=== PATIENT | female | born 1985 | race Caucasian/White ===

== ENCOUNTER 2017-03-07 12:34 | Emergency (ER) | payer MEDICAID ==
[~2017-03-07] VITALS: Ht 170.2 cm; Wt 81.7 kg
[2017-03-07 12:38] VITALS: BP 117/62; PULSE 86; RESP 16; TEMP 98.1; O2SAT 99
--- NOTE | 2017-03-07 13:10 | PD ---
HPI Chief Complaint: Related Problem Time Seen by Provider: 12:41 Travel History International Travel<30 days: No Contact w/Intl Traveler<30days: No Traveled to known affect area: No History of Present Illness HPI 31-year-old woman who presents emergency department complaining of brownish spotting this morning. She believes she is not on a 10 weeks. Her last menstrual period was January 02. She is 3 para 2. She's not had an ultrasound this . She'll little mild cramping last night. This morning she had a little bit of brownish spotting. No vaginal discharge. She has increased urination but no dysuria. She been very tired recently but no other complaints. History Past Medical History Medical History: Denies Significant Hx Influenza Vaccination: No LMP: 01/02/17 Past Surgical History Surgical History: No Previous Surgery Social History Alcohol Use: No Tobacco Use: No (STS QUIT 2 WEEKS AGO) Allergies-Medications (Allergen,Severity, Reaction): Coded Allergies: No Known Allergies (Unverified , 03/07/17) Reported Meds & Prescriptions Reported Meds & Active Scripts Active No Active Prescriptions or Reported Medications Review of Systems Except as stated in HPI: all other systems reviewed are Neg Physical Exam Narrative GENERAL: Well-appearing 31-year-old woman, no acute distress. SKIN: Focused skin assessment warm/dry. CARDIOVASCULAR: Regular rate and rhythm. No murmur appreciated. RESPIRATORY: No accessory muscle use. Clear to auscultation. Breath sounds equal bilaterally. GASTROINTESTINAL: Abdomen soft, non-tender, nondistended. Hepatic and splenic margins not palpable. MUSCULOSKELETAL: No obvious deformities. No edema. NEUROLOGICAL: Awake and alert. No obvious cranial nerve deficits. Motor grossly within normal limits. Normal speech. 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 A little bit of brownish vaginal discharge. No blood or spotting no red blood. Cervix is normal in appearance. On bimanual exam she has minimal pelvic tenderness. No palpable uterine enlargement or adnexal masses. Data Data Last Documented VS Vital Signs Date Time Temp Pulse Resp B/P Pulse Ox O2 Delivery O2 Flow Rate FiO2 03/07/17 12:38 98.1 86 16 117/62 99 Orders Ed Poc Ultrasound (03/07/17 ) Beta Hcg (Quant/Titer) (03/07/17 13:04) Gc And Chlamydia Pcr (03/07/17 13:04) Us Pelvis (Ques Preg/Ectopic) (03/07/17 ) Wet Prep Profile (03/07/17 13:04) Ed Urine Pregnancytest Poc (03/07/17 13:04) Labs Laboratory Tests Test 03/07/17 03/07/17 12:50 13:15 Clue Cells (Wet Prep) NONE SEEN Vaginal Trichomonas (Wet Prep) NONE SEEN Vaginal Yeast (Wet Prep) NONE SEEN Human Chorionic Gonadotropin, 54144 MIU/ML Quant MDM Medical Decision Making Medical Screen Exam Complete: Yes Emergency Medical Condition: Yes Interpretation(s) Wet prep negative HCG 16,000 Pelvic ultrasound: Intrauterine measuring approximately 5 weeks 4 days. Small amount of free fluid. Differential Diagnosis Threatened AB, , ectopic , UTI, vaginitis, other Narrative Course Medical decision making This a 31-year-old woman who presents to the emergency department with some brownish vaginal discharge and mild cramping. Bedside ultrasound shows what appears to be very early, approximately 5-6 week, intrauterine . I don 't see any bleeding. She describes a little bit of brownish vaginal spotting. She's reportedly Rh-. With no real bleeding this early in don't think she needs RhoGAM. We'll give formal ultrasound to confirm IUP. Recommend close outpatient follow-up with OB. Diagnosis Primary Impression: Intrauterine Additional Instructions: Take [id number] vitamins. Follow-up with the bander and cellophaner machine in the next one to 2 weeks. Return to the emergency department for any vaginal bleeding, worsening abdominal cramping, or any other new or worsening symptoms. Scripts No Active Prescriptions or Reported Meds Disposition: 01 DISCHARGE HOME Condition: Stable Kobe Recinos MD Mar 07, 2017 13:10
[2017-03-07 14:07] LABS: BETA HCG QUANT 16851 MIU/ML (0-5)
[2017-03-07 17:52] LABS: CHLAMYDIA PCR NOT DETECTED (NOT DETECT); NEISSERIA PCR NOT DETECTED (NOT DETECT)
--- NOTE | 2017-03-17 16:28 | RADRPT ---
EXAM DATE/TIME: 03/07/2017 13:43 CORRECTION Corrected on: March 17, 2017; added trans va to description [place] COMPARISON: No previous studies available for comparison. INDICATIONS : Pelvic pain. LAB(S): Beta-hC MEDICAL HISTORY : Pelvic pain. SURGICAL HISTORY : None. ENCOUNTER: Initial ACUITY: 1 day PAIN SCORE: 4/10 LOCATION: Bilateral pelvis MEASUREMENTS: UTERUS: 7.1 x 6.2 x 5.3 cm ENDOMETRIAL STRIPE: 10 mm RIGHT OVARY: 2.9 x 2.8 x 2.2 cm LEFT OVARY: 2.9 x 3.6 x 2.5 cm FREE FLUID: Yes posterior cul de sac CROWN RUMP LENGTH: 0.2 cm = 5 WKS 5 DAYS FINDINGS: UTERUS: The myometrium has homogeneous echotexture without mass.Well-formed gestational sac is observed with mean sac diameter of 1.31 cm which equals 5 weeks 4 days gestational age. A tiny echogenic focus whic h may relate to an early pole measures 0.26 cm which equals 5 weeks 6 days gestational age. No detectable heart rate at this point. No discernible yolk sac. RIGHT OVARY: Ovary contains no mass or significant cystic lesion. LEFT OVARY: Ovary contains no mass or significant cystic lesion. MISCELLANEOUS: Small amount of free fluid within the cul-de-sac. CONCLUSION: 1. Intrauterine gestation with age by mean sac diameter of 5 weeks 4 days. There is a questionable ea rly pole. Currently no heart rate activity is appreciated although this may simply relate to the age of the gestation. Often times heart rate activity is not detectable until the sixth or seventh gestational week. 2. Small amount of free fluid. Chuy Mackenzie Jr., MD on March 07, 2017 at 14:33 Board Certified Radiologist. This report was verified electronically.
== END 2017-03-07 14:57 | disposition home or self-care (01) ==
LOC: PHED 12:34
DX: O26.891 Other specified pregnancy related conditions, first trimester (principal); N89.8 Other specified noninflammatory disorders of vagina; Z3A.01 Less than 8 weeks gestation of pregnancy
CPT/HCPCS: 76700; 76817; 84702; 87210; 87491; 87591

== ENCOUNTER 2017-06-21 22:06 | Emergency (ER) | payer MEDICAID ==
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
== END 2017-06-21 23:48 ==
LOC: HOBED 22:06
DX: O99.89 Other specified diseases and conditions complicating pregnancy, childbirth and the puerperium (principal); R22.0 Localized swelling, mass and lump, head; W50.0XXA Accidental hit or strike by another person, initial encounter; Z3A.22 22 weeks gestation of pregnancy
CPT/HCPCS: 99284

== ENCOUNTER 2017-07-03 22:29 | Emergency (ER) | payer MEDICAID ==
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
[2017-07-03 23:38] LABS: BACTERIA, URINE RARE /hpf; BLOOD, URINE NEG (NEG); GLUCOSE,URINE NEG (NEG); KETONE, URINE NEG (NEG); MUCUS URINE FEW /lpf (OCC); NITRITE,URINE NEG (NEG); RENAL EPITHELIAL CELLS <1 /hpf; SQUAMOUS EPITHELIAL CELL URINE 6 /hpf (0-5); URINE COLOR YELLOW (YELLW/STRAW)
[2017-07-03 23:39] VITALS: BP 102/52; PULSE 100; RESP 16; TEMP 98.1; O2SAT 100
[2017-07-03 23:39] LABS: COMMENT (UR) CULT NOT INDICATED; CULTURE IF INDICATED CULT NOT INDICATED
--- NOTE | 2017-07-04 00:02 | PD ---
HPI Chief Complaint: JEAN-PAUL Related Problem Time Seen by Provider: 23:54 Travel History International Travel<30 days: No Contact w/Intl Traveler<30days: No Traveled to known affect area: No History of Present Illness HPI Patient is a 31-year-old female who is L2 who is currently 24 weeks , presents to emergency room from OB triage for evaluation of headache and back pain. Patient reports that she has been having headaches and back pain for the past 2 days, reports the headaches are intermittent in nature. She reports that with her headache and back pain, she is concerned for her fetus and came to the emergency room to make sure that her baby is okay. Patient reports that she was at OB triage prior to coming to the emergency room, reports that she had monitoring and was told that her baby was fine. Reports that she was told she had a lump to her low back - questionable ganglion cysts, reports that she was told to come down to the ER for evaluation of this cyst. Patient at this time does not want any imaging to her low back, reports "i really didn't want to come down here to the ER." Patient denies any incontinence of urine or bowel, denies any sciatic pain. Patient with no signs of cauda equina. Reports normal gait with no dysfunction. As per patient's headache, patient reports that she had a posterior headache today - reports that her headache has been intermittent for the past 2 days and comes and goes. She did take one dose of Advil for it, due to the headache has improved. Patient with no vision changes, no photophobia with her symptoms. Patient endorses at this is not the worst headache of her life. Patient reports her headache symptoms are typical for her normal headaches, she does not want evaluation for her headache at this time. Patient with no fever or chills, no other complaints at this time. [facility] Past Medical History Medical History: Denies Significant Hx Family History Family History: Negative Social History Alcohol Use: No Tobacco Use: No Substance Use: No Allergies-Medications (Allergen,Severity, Reaction): Coded Allergies: No Known Allergies (Unverified , 03/07/17) Reported Meds & Prescriptions Reported Meds & Active Scripts Active No Active Prescriptions or Reported Medications Review of Systems General / Constitutional: No: Fever Eyes: No: Visual changes HENT: Positive: Headaches Cardiovascular: No: Chest Pain or Discomfort Respiratory: No: Shortness of Breath Gastrointestinal: No: Abdominal Pain Genitourinary: No: Dysuria Musculoskeletal: Positive: Pain (low back pain) Skin: No Rash Neurologic: No: Weakness Psychiatric: No: Depression Endocrine: No: Polydipsia Hematologic/Lymphatic: No: Easy Bruising Physical Exam Narrative GENERAL: No acute distress, nontoxic SKIN: Focused skin assessment warm/dry. HEAD: Atraumatic. Normocephalic. EYES: Pupils equal and round. No scleral icterus. No injection or drainage. ENT: No nasal bleeding or discharge. Mucous membranes pink and moist. NECK: Trachea midline. No JVD. CARDIOVASCULAR: Regular rate and rhythm. No murmur appreciated. RESPIRATORY: No accessory muscle use. Clear to auscultation. Breath sounds equal bilaterally. GASTROINTESTINAL: Abdomen soft, non-tender, nondistended. Hepatic and splenic margins not palpable. MUSCULOSKELETAL: No obvious deformities. No clubbing. No cyanosis. No edema. Patient appears to have a ganglion cyst to her low back, there is no saddle anesthesia, patient ambulating emergency with normal gait. Patient does have lumbar paraspinal tenderness, no midline tenderness NEUROLOGICAL: Awake and alert. No obvious cranial nerve deficits. Motor grossly within normal limits. Normal speech. Cranial nerves 2- 12 grossly intact with no neurological deficits. PSYCHIATRIC: Appropriate mood and affect; insight and judgment normal. Data Data Orders Orders Vital Signs (Adult) .ON ADMISSION (07/03/17 23:13) ^ Labor Status (07/03/17 23:13) ^ Non Stress Test (07/03/17 23:13) Ed Discharge Order (07/03/17 23:13) Urinalysis - C+S If Indicated (07/03/17 23:29) Labs Laboratory Tests Test 07/03/17 22:40 Urine Color YELLOW Urine Turbidity HAZY Urine pH 7.0 Urine Specific [place] 1.017 Urine Protein NEG mg/dL Urine Glucose (UA) NEG mg/dL Urine Ketones NEG mg/dL Urine Occult Blood NEG Urine Nitrite NEG Urine Bilirubin NEG Urine Urobilinogen LESS THAN 2.0 MG/DL Urine Leukocyte Esterase NEG Urine RBC LESS THAN 1 /hpf Urine WBC 3 /hpf Urine Squamous Epithelial Cells 6 /hpf Urine Renal Epithelial Cells <1 /hpf Urine Amorphous Sediment RARE Urine Bacteria RARE /hpf Urine Mucus FEW /lpf Microscopic Urinalysis Comment CULT NOT INDICATED MDM Medical Decision Making Medical Screen Exam Complete: Yes Emergency Medical Condition: Yes Medical Record Reviewed: Yes Differential Diagnosis Ganglionic cysts vs mass, dehydration, cephalgia Narrative Course 31-year-old female who presents to emergency room 24 weeks with complaints of headache and back pain. She was seen and cleared by OB, is here for further evaluation of her headache and back lesion. Headache: As per patient's headache, patient reports posterior headache, denies thunderclap headache, reports that this is not the worst headache of her life. Patient with no vision changes of the symptoms with slight nausea. Patient does not want any radiographic studies at this time, patient reports that she feels fine and wishes to be discharged to home, patient does not want any workup for her headache. She does report that she has been drinking a lot of soda, reports that she has not been drinking any water. Discussed with patient need to drink plenty of water and that she is 24 weeks and denies is dehydrated. Left of hydration could cause headaches. Back pain: Patient does have low back pain, she appears to have a ganglion cyst to her lumbar spine. Patient at this time refuses redirecting studies for further evaluation of this back lesion. Discussed with patient that if symptoms progress and worsen, she should have studies to this lesion. Patient at this time requests to be discharged to home, she does not want further workup in the emergency room. Signs and symptoms of when to return to the emergency room was reviewed patient in detail. 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 Diagnosis Primary Impression: 24 weeks gestation of Additional Impressions: Back pain Headache Patient Instructions: General Instructions, Movement (ED), Abdominal Pain in (ED) Departure Forms: Tests/Procedures Additional Instructions: come back if strong cramping, contractions, bleeding, fluid leakage, or significant decrease in baby movement. may take tylenol for headache, no motrin , advil or any NSAID pain releiver Please follow-up with your primary care doctor as soon as possible Return to the emergency room as needed or if symptoms persist Scripts No Active Prescriptions or Reported Meds Disposition: 01 DISCHARGE HOME Condition: Stable Sarina Urbina DO Jul 04, 2017 00:02
[2017-07-04 00:51] VITALS: BP 102/52; PULSE 70; RESP 20; TEMP 98.1; O2SAT 100
[2017-07-09 07:26] LABS: BATH SALTS (MDPV) UR NEG (NEG); ECSTASY (MDMA) UR NEG (NEG); HEROIN (6-ACETYLMORPHINE) UR NEG (NEG); K2 SPICE UR NEG (NEG); OBHYDROMORPHONE U NEG (NEG); OBMETHADONE UR NEG (NEG); PHENCYCLIDINE URINE NEG (NEG)
[2017-07-09 07:29] LABS: OBGABAPENTIN UR POS (NEG)
== END 2017-07-04 00:25 | disposition home or self-care (01) ==
LOC: HOBED 22:29 → NEPD 07-04 00:25
DX: O26.892 Other specified pregnancy related conditions, second trimester (principal); R51 Headache; M54.5 Low back pain; R11.0 Nausea; M67.48 Ganglion, other site; Z3A.24 24 weeks gestation of pregnancy
CPT/HCPCS: 80307; 81001; 99284; G0481

== ENCOUNTER 2017-08-17 01:37 | Emergency (ER) | payer MEDICAID ==
[~2017-08-17] VITALS: Ht 167.6 cm; Wt 92.7 kg
[2017-08-17 01:40] VITALS: BP 153/66; PULSE 84; RESP 20; TEMP 97.5; O2SAT 100
[2017-08-17] MEDS ORDERED: PREN29TA PO (02:04)
[2017-08-17] MEDS ORDERED: METR1TAB76 PO (02:04)
[2017-08-17] MEDS ORDERED: AMOX875T PO (03:24)
[2017-08-17] MEDS ORDERED: LIDOCAINE HCL 1% 20 ML VIAL INFIL ONE (03:30)
[2017-08-17] MEDS ORDERED: AMOXICILLIN 875 MG TAB PO ONE (03:30)
--- NOTE | 2017-08-17 03:30 | PD ---
HPI Chief Complaint: Oral / Dental Pain or Problem Time Seen by Provider: 02:58 Travel History International Travel<30 days: No Contact w/Intl Traveler<30days: No Traveled to known affect area: No History of Present Illness HPI The patient is a 31-year-old female that has had a toothache in tooth #32 for 2 days. She claims a pain level of 9/10, sharp pain. She is 30 weeks . She has tried plain Tylenol at home without relief. She is already on Flagyl for a gynecological problem. She has no known allergies. PFSH Past Medical History Hx Anticoagulant Therapy: No Cardiovascular Problems: No Chemotherapy: No Cerebrovascular Accident: No Diabetes: No Respiratory: No Tetanus Vaccination: Unknown Influenza Vaccination: No ?: LMP: january 02 2017 : 3 Para: 2 Past Surgical History Appendectomy: Yes Hysterectomy: No Tonsillectomy: Yes Social History Alcohol Use: No Tobacco Use: No Substance Use: No Allergies-Medications (Allergen,Severity, Reaction): Coded Allergies: No Known Allergies (Unverified Allergy, Unknown, 07/17/17) Reported Meds & Prescriptions Reported Meds & Active Scripts Active Amoxicillin 875 Mg Tab 875 Mg PO BID 14 Days Reported Metronidazole 500 Mg Tab 500 Mg PO BID Plus Iron 29-1 mg ( Vit-Iron Carbonyl) 29 Mg Iron-1 Mg Tab 1 Tab PO DAILY Review of Systems Except as stated in HPI: all other systems reviewed are Neg Physical Exam Narrative GENERAL: Well-nourished, well-developed patient in moderate apparent distress with her dental pain. Her vital signs show blood pressure 153/66 but otherwise normal. SKIN: Focused skin assessment warm/dry. HEAD: Normocephalic. EYES: No scleral icterus. No injection or drainage. NECK: Supple, trachea midline. No JVD or lymphadenopathy. CARDIOVASCULAR: Regular rate and rhythm without murmurs, gallops, or rubs. RESPIRATORY: Breath sounds equal bilaterally. No accessory muscle use. GASTROINTESTINAL: Abdomen soft, non-tender, nondistended. MUSCULOSKELETAL: No cyanosis, or edema. BACK: Nontender without obvious deformity. No CVA tenderness. DENTAL: No loose or chipped teeth. No malocclusion. There is a broken down tooth, #32 that is exquisitely tender. No drainable abscesses are noted around this tooth or any other teeth. Data Data Last Documented VS Vital Signs Date Time Temp Pulse Resp B/P (MAP) Pulse Ox O2 Delivery O2 Flow Rate FiO2 08/17/17 01:56 20 08/17/17 01:40 97.5 84 153/66 (95) 100 Orders Orders Lidocaine 1% Inj (Xylocaine 1% Inj) (08/17/17 03:30) Amoxicillin (Trimox) (08/17/17 03:30) MDM Medical Decision Making Medical Screen Exam Complete: Yes Emergency Medical Condition: Yes Medical Record Reviewed: Yes Differential Diagnosis Uncomplicated dental infection, drainable abscess, Narrative Course The patient has an uncomplicated dental infection. She does not have any drainable abscess. She will need to follow-up with a dentist as soon as possible. Procedures Procedure Narrative At patient's request, a dental block was done around tooth #32. Plain lidocaine was used, lidocaine with epinephrine was not available in this emergency department. The patient tolerated the procedure well. Diagnosis Primary Impression: Dental infection Additional Instructions: As we discussed, follow-up with a dentist. The antibiotic is taken one tablet twice daily and I gave you 14 days. This should give you time to see a dentist. Take plain Tylenol for pain. Med/Other Pt SpecificInfo: Prescription(s) given Scripts Amoxicillin (Amoxicillin) 875 Mg Tab 875 MG PO BID for Infection for 14 Days, #28 TAB 0 Refills Prov: Estuardo Chamorro MD 08/17/17 Disposition: 01 DISCHARGE HOME Condition: Stable Estuardo Chamorro MD Aug 17, 2017 03:30
== END 2017-08-17 03:58 | disposition home or self-care (01) ==
LOC: PHED 01:37
DX: K04.7 Periapical abscess without sinus (principal); Z3A.30 30 weeks gestation of pregnancy
CPT/HCPCS: 64400

== ENCOUNTER → 2017-10-12 | Emergency (ER) | payer MEDICAID ==
[~2017-10-12] MED LIST: AMOX875T PO; IBUP1TAB7 PO; LACTATED RINGER'S 1000 ML INJ 500 ML IV ONE; METR1TAB76 PO; PERI PO; PREN29TA PO
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
[2017-10-13 01:03] LABS: AUTOMATED NEUTROPHIL # 10.9 TH/MM3 (1.8-7.7); BASOPHIL # 0.1 TH/MM3 (0-0.2); BASOPHIL % 0.6 % (0.0-2.0); EOSINOPHIL # 0.1 TH/MM3 (0-0.4); EOSINOPHIL % 0.6 % (0.0-4.0); HEMATOCRIT 32.4 % (35.0-46.0); HEMOGLOBIN 11.6 GM/DL (11.6-15.3); LYMPH % 18.7 % (9.0-44.0); LYMPHOCYTE # 2.8 TH/MM3 (1.0-4.8); MEAN CELL VOLUME 87.2 FL (80.0-100.0); MEAN CORPUSCULAR HEMOGLOBIN 31.3 PG (27.0-34.0); MEAN CORPUSCULAR HGB CONC 35.9 % (32.0-36.0); MEAN PLATELET VOLUME 7.4 FL (7.0-11.0); MONO % 6.6 % (0.0-8.0); NEUT % 73.5 % (16.0-70.0); PLATELET COUNT 302 TH/MM3 (150-450); RED BLOOD COUNT 3.72 MIL/MM3 (4.00-5.30); RED CELL DISTRIBUTION WIDTH 12.6 % (11.6-17.2); WHITE BLOOD COUNT 14.9 TH/MM3 (4.0-11.0)
[2017-10-13 01:41] VITALS: RESP 18
[2017-10-13 01:43] VITALS: BP 114/62; PULSE 91
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
[2017-10-13 12:27] LABS: HEPATITIS A AB IGM NEGATIVE (NEGATIVE); HEPATITIS B CORE AB IGM NEGATIVE (NEGATIVE)
== END | disposition home or self-care (01) ==
LOC: HOBED 23:24
DX: O47.1 False labor at or after 37 completed weeks of gestation (principal)
CPT/HCPCS: 59025; 80074; 80307; 83030; 84112; 85025; 86592; 86703; 86762; 86850; 86900; 86901; 87081; 87150

== ENCOUNTER 2017-10-17 17:46 | Inpatient (IN) | payer MEDICAID ==
[~2017-10-17] VITALS: Ht 170.2 cm; Wt 89.0 kg
[2017-10-17] VITALS (52 sets, daily range): BP systolic 101–147; BP diastolic 60–101; PULSE 72–141; RESP 16–18; TEMP 97.6–98.5
[~2017-10-17 17:46] MED LIST changes: +DIPHTH/TETANUS/ACEL PERTUSSIS (BOOSTER) 0.5 ML VIAL/PFS IM ONE; -IBUP1TAB7 PO; -LACTATED RINGER'S 1000 ML INJ 500 ML IV ONE; +MEASLES, MUMPS, RUBELLA VACCINE 0.5 ML VIAL SQ ONE; -PERI PO
[2017-10-17] MEDS ORDERED: LACTATED RINGER'S 1000 ML INJ 1,000 ML IV PRN (18:28)
--- NOTE | 2017-10-17 18:28 | HHI.HP ---
HPI Chief Complaint Contractions Date Seen: Oct 17, 2017 Time Seen: 18:24 Travel History International Travel<30 Days: No Contact w/Intl Traveler<30Days: No Known Affected Area: No History of Present Illness HPI Patient is 31-year-old white female 38 weeks [facility] and presents in labor. Her cervix is 4-5 cm/90/-2/vertex with a bulging bag, heart tones are reactive she is aditya regularly and uncomfortably Weeks Gestation: 38 Para: 2 : 3 History Obstetric History Obstetric History 2 vaginal deliveries Social History Alcohol Use: No Tobacco Use: No Substance Abuse: No Allergies-Medications (Allergen,Severity, Reaction): Coded Allergies: No Known Allergies (Unverified Allergy, Unknown, 07/17/17) Home Meds Active Scripts Amoxicillin (Amoxicillin) 875 Mg Tab, 875 MG PO BID for Infection for 14 Days, # 28 TAB 0 Refills Prov:Estuardo Chamorro MD 08/17/17 Reported Medications Metronidazole (Metronidazole) 500 Mg Tab, 500 MG PO BID for Infection, TAB 0 Refills 08/17/17 Vit-Iron Carbonyl ( Plus Iron 29-1 mg) 29 Mg Iron-1 Mg Tab, 1 TAB PO DAILY for Nutritional Supplement, #30 TAB 0 Refills 08/17/17 Review of Systems General / Constitutional: No: Fever, Weight Gain, Chills, Other Eyes: No: Diploplia, Blurred Vision, Visual changes, Pain, Photophobia HENT: No: Headaches, Vertigo, Lightheadedness Cardiovascular: No: Irregular Rhythm, Chest Pain or Discomfort, Palpitations, Tachycardia, Syncope, Varicosities, Edema, Cyanosis Respiratory: No: Cough, Short of Breath, Other Gastrointestinal: Abdominal Pain, No: Nausea, Vomiting, Diarrhea Genitourinary: No: Decreased Urinary Output, Oliguria Musculoskeletal: No: Limited ROM, Weakness, Cramping, Edema, Pain Skin: No Rash, No Itching, No Dryness, No Lumps, No Change in Pigmentation, No Change in Nails, No Alopecia, No Lesions Neurologic: No: Weakness, Dizziness, Syncope, Focal Abnormalities, Coordination Problem, Headache, Slurred Speech, Seizures Psychiatric: No: Depression, Suicidal Ideations, Homicidal Ideation Endocrine: No: Heat Intolerance, Cold Intolerance, Polydipsia, Polyuria, Other Physical Exam Narrative GENERAL: Well-nourished, well-developed patient. SKIN: Warm and dry. HEAD: Normocephalic and atraumatic. EYES: No scleral icterus. No injection or drainage. ENT: No nasal drainage noted. Mucous membranes pink. Airway patent. NECK: Supple, trachea midline. No JVD. CARDIOVASCULAR: Regular rate and rhythm without murmurs, gallops, or rubs. RESPIRATORY: Breath sounds equal bilaterally. No accessory muscle use. BREASTS: Bilateral exam showed no masses , no retractions, no nipple discharge. ABDOMEN/GI: Abdomen soft, non-tender, bowel sounds present, no rebound, no guarding Gravid to [38-] weeks size Fundal Height: [-38] GENITOURINARY: External Genitalia: intact and normal in appearance BUS glands: [-] Cervix: [-] Dilatation: [-4-5] Effacement: [90-] Station: [-2] Presentation: [-vtx] Membranes: [intact ] Uterine Contractions: [q 3 min-] FHT's: Category: [-1] Baseline: [-133] Reactive: [R-] Variability: [mod-] Decels: [-none] EXTREMITIES: No cyanosis or edema. BACK: Nontender without obvious deformity. No CVA tenderness. NEUROLOGICAL: Awake and alert. Motor and sensory grossly within normal limits. Five out of 5 muscle strength in all muscle groups. Normal speech. Caprini VTE Risk Assessment Caprini VTE Risk Assessment: No/Low Risk (score <= 1) Caprini Risk Assessment Model Point Value = 1 Point Value = 2 Point Value = 3 Point Value = 5 Age 41-60 Minor surgery BMI > 25 kg/m2 Swollen legs Varicose veins or History of unexplained or recurrent spontaneous Oral contraceptives or hormone replacement Sepsis (< 1 month) Serious lung disease, including pneumonia (< 1 month) Abnormal pulmonary function Acute myocardial infarction Congestive heart failure (< 1 month) History of inflammatory bowel disease Medical patient at bed rest Age 61-74 Arthroscopic surgery Major open surgery (> 45 min) Laparoscopic surgery (> 45 min) Malignancy Confined to bed (> 72 hours) Immobilizing plaster cast Central venous access Age >= 75 History of VTE Family history of VTE Factor V Leiden Prothrombin [id number] Lupus anticoagulant Anticardiolipin antibodies Elevated serum homocysteine Heparin-induced thrombocytopenia Other congenital or acquired thrombophilia Stroke (< 1 month) Elective arthroplasty Hip, pelvis, or leg fracture Acute spinal cord injury (< 1 month) Prophylaxis Regimen Total Risk Factor Score Risk Level Prophylaxis Regimen 0-1 Low Early ambulation 2 Moderate Order ONE of the following: *Sequential Compression Device (SCD) *Heparin 5000 units SQ BID 3-4 Higher Order ONE of the following medications: *Heparin 5000 units SQ TID *Enoxaparin/Lovenox 40 mg SQ daily (WT < 150 kg, CrCl > 30 mL/min) *Enoxaparin/Lovenox 30 mg SQ daily (WT < 150 kg, CrCl > 10-29 mL/min) *Enoxaparin/Lovenox 30 mg SQ BID (WT < 150 kg, CrCl > 30 mL/min) AND/OR *Sequential Compression Device (SCD) 5 or more Highest Order ONE of the following medications: *Heparin 5000 units SQ TID (Preferred with Epidurals) *Enoxaparin/Lovenox 40 mg SQ daily (WT < 150 kg, CrCl > 30 mL/min) *Enoxaparin/Lovenox 30 mg SQ daily (WT < 150 kg, CrCl > 10-29 mL/min) *Enoxaparin/Lovenox 30 mg SQ BID (WT < 150 kg, CrCl > 30 mL/min) AND *Sequential Compression Device (SCD) Assessment/Plan Assessment and Plan Patient is 31-year-old white female at 38 weeks presents in active labor. Cervix 4-5 cm/90/-2. [facility] are [facility]. heart tracing is reactive contractions noted. Impression active labor at term Plan= admit to labor and delivery, managed labor appropriately, epidural anesthesia, anticipate vaginal delivery Joe Muro II, MD Oct 17, 2017 18:28
[2017-10-17] MEDS ORDERED: MINERAL OIL 10 ML VIAL TOPICAL PRN (18:30)
[2017-10-17] MEDS ORDERED: SODIUM CHLORID 0.9% 500 ML INJ 500 ML IV PRN (18:30)
[2017-10-17] MEDS ORDERED: fentaNYL 2MCG-BUPIV 0.125% INJ 100 ML ONE (18:30)
[2017-10-17] MEDS ORDERED: LIDOCAINE HCL 1% 50 ML VIAL INFIL PRN (18:30)
[2017-10-17] MEDS ORDERED: CITRIC ACID-SODIUM CITRATE LIQ 30 ML UDC PO SCH (18:30)
[2017-10-17] MEDS ORDERED: OXYTOCIN 30 UNITS-500ML PREMIX 500 ML IV ONE (18:30)
[2017-10-17] MEDS ORDERED: LIDOCAINE HCL 1% 50 ML VIAL I-DERMAL PRN (18:30)
[2017-10-17] MEDS ORDERED: SODIUM CHLOR 0.9% 1000 ML INJ 1,000 ML IV PRN (18:48)
[2017-10-17 19:24] LABS: BASOPHIL # 0.1 TH/MM3 (0-0.2); BASOPHIL % 0.4 % (0.0-2.0); EOSINOPHIL # 0.1 TH/MM3 (0-0.4); EOSINOPHIL % 0.4 % (0.0-4.0); HEMATOCRIT 37.3 % (35.0-46.0); HEMOGLOBIN 12.4 GM/DL (11.6-15.3); LYMPH % 16.5 % (9.0-44.0); LYMPHOCYTE # 2.4 TH/MM3 (1.0-4.8); MEAN CELL VOLUME 87.5 FL (80.0-100.0); MEAN CORPUSCULAR HEMOGLOBIN 29.2 PG (27.0-34.0); MEAN CORPUSCULAR HGB CONC 33.4 % (32.0-36.0); MEAN PLATELET VOLUME 8.2 FL (7.0-11.0); MONO % 6.3 % (0.0-8.0); MONOCYTE # 0.9 TH/MM3 (0-0.9); NEUT % 76.4 % (16.0-70.0); PLATELET COUNT 346 TH/MM3 (150-450); RED BLOOD COUNT 4.26 MIL/MM3 (4.00-5.30); RED CELL DISTRIBUTION WIDTH 12.9 % (11.6-17.2); WHITE BLOOD COUNT 14.4 TH/MM3 (4.0-11.0)
[2017-10-17] MEDS: LACTATED RINGER'S 1000 ML INJ 1,000 ML IV SCH (20:01)
[2017-10-17] MEDS ORDERED: ePHEDrine/NS 25 MG/5 ML SYRINGE IV PUSH PRN (20:45)
[2017-10-17] MEDS ORDERED: DO NOT ADMINISTER ANTICOAGULANTS PRN (20:45)
[2017-10-17] MEDS ORDERED: NO SYSTEM NARCOTICS PRN (20:45)
[2017-10-17] MEDS ORDERED: fentaNYL 2MCG-BUPIV 0.125% 100 ML EPIDURAL SCH (20:45)
[2017-10-17 21:20] LABS: BILIRUBIN, URINE NEG (NEG); BLOOD, URINE TRACE (NEG); GLUCOSE,URINE NEG (NEG); KETONE, URINE TRACE mg/dL (NEG); NITRITE,URINE NEG (NEG); PH, URINE 6.5 (5.0-8.5); SQUAMOUS EPITHELIAL CELL URINE 2 /hpf (0-5); URINE COLOR LIGHT-YELLOW (YELLW/STRAW); URINE LEUKOCYTE ESTERASE NEG (NEG)
[2017-10-17] MEDS ORDERED: LIDOCAINE HCL 1% 20 ML VIAL ONE (21:21)
--- NOTE | 2017-10-17 21:38 | PD.OB.DELI ---
Weeks gestation: 38 Anesthesia: Epidural Episiotomy: None Vaginal Delivery: Normal Presentation: Occiput anterior Nuchal Cord: None Delayed cord clamping (45 sec): Yes : Male, Single Delivery date: Oct 17, 2017 Delivery time: 21:28 One Minute : 7 Five Minute : 9 Weight: 3435 gm Placenta: Spontaneous delivery, Intact Laceration: No lacerations Estimated blood loss: 100 cc Joe Muro II, MD Oct 17, 2017 21:38
[2017-10-17] MEDS ORDERED: ZOLPIDEM TARTRATE 5 MG TAB PO PRN (21:45)
[2017-10-17] MEDS ORDERED: SODIUM CHLORIDE 0.9% FLUSH 10 ML FLUSH IV FLUSH PRN (21:45)
[2017-10-17] MEDS ORDERED: BENZOCAINE 20% TOPICAL SPRAY 60 ML CAN TOPICAL PRN (21:45)
[2017-10-17] MEDS ORDERED: ONDANSETRON ODT 4 MG TAB PO PRN (21:45)
[2017-10-17] MEDS ORDERED: ALUMINUM/MAGNESIUM/SIMETH 30 ML CUP PO PRN (21:45)
[2017-10-17] MEDS ORDERED: WITCH HAZEL 50%/GLYCERIN 12.5% 40 PAD JAR TOPICAL PRN (21:45)
[2017-10-17] MEDS ORDERED: OXYTOCIN 30 UNITS-500ML PREMIX 500 ML IV SCH (21:45)
[2017-10-17] MEDS ORDERED: diphenhydrAMINE HCL 50 MG/ML VIAL IM PRN (23:30)
[2017-10-18 00:05] VITALS: BP 124/72; PULSE 91; RESP 18; TEMP 98.6; O2SAT 97
[2017-10-18] MEDS: IBUPROFEN 800 MG TAB PO PRN ×3 (00:14→17:28)
--- NOTE | 2017-10-18 08:36 | HHI.OB ---
Subjective Post Day: 1 Remarks Patient seen and examined this morning. day #1. Patient reports she has been afebrile overnight. Reports her pain has been tolerable, endorses some lower pelvic cramping pain. Reports vaginal bleeding antonio. the amount of a normal period for her. Denies dysuria. No breast tenderness. She is feeding the baby via breast without reported issues. Appetite good. No nausea or vomiting. Ambulating well. Denies calf pain, shortness of breath, or cough. She otherwise has no other complaints or concerns this morning. Objective Objective Remarks GENERAL: Well-nourished, well-developed patient. CARDIOVASCULAR: Regular rate and rhythm without murmurs, gallops, or rubs. RESPIRATORY: Breath sounds equal bilaterally. No accessory muscle use. ABDOMEN/GI: Abdomen soft, non-tender. Fundus: Firm, non-tender at umbilicus. GENITOURINARY: Light to moderate bleeding. EXTREMITIES: No cyanosis or edema, non-tender, without signs of DVT. Medications and IVs Current Medications Medications (Trade) Dose Ordered Sig/Marybeth Route Start Time Stop Time Status Last Admin Lactated Ringer's 1,000 ml @ 125 mls/hr Q8H IV 10/17/17 18:28 10/17/17 20:01 Lactated Ringer's 1,000 ml @ 3,000 mls/hr Q20M PRN IV 10/17/17 18:28 Sodium Chloride 1,000 ml @ 100 mls/hr Q10H PRN IV 10/17/17 18:48 (Xylocaine 1% Inj (50 ml)) 0.1 ml UNSCH X1 PRN I-DERMAL 10/17/17 18:30 10/20/17 18:29 (Bicitra Liq) 30 ml SAUSAGE MACHINE OPERATOR PO 10/17/17 18:30 10/21/17 18:29 (fentaNYL INJ) 50 mcg Q1H PRN IV PUSH 10/17/17 18:30 (fentaNYL INJ) 100 mcg Q1H PRN IV PUSH 10/17/17 18:30 (Xylocaine 1% Inj (50 ml)) 10 ml UNSCH X1 PRN INFIL 10/17/17 18:30 10/19/17 18:29 (Muri-Lube Oil) 10 ml UNSCH PRN TOPICAL 10/17/17 18:30 Miscellaneous Information No systemic narcotics to be given except... UNSCH PRN .XX 10/17/17 20:45 10/18/17 20:44 Miscellaneous Information DO NOT ADMINISTER ANY ANTICOAGUL... UNSCH PRN .XX 10/17/17 20:45 10/18/17 20:44 Fentanyl/ Bupivacaine HCl 100 ml @ 0 mls/hr TITRATE EPIDURAL 10/17/17 20:45 (ePHEDrine/NS 25 MG/5 ML SYR) 10 mg UNSCH PRN IV PUSH 10/17/17 20:45 10/18/17 20:44 (NS Flush) 2 ml BID IV FLUSH 10/18/17 09:00 (NS Flush) 2 ml UNSCH PRN IV FLUSH 10/17/17 21:45 (Tylenol) 650 mg Q4H PRN PO 10/17/17 21:45 (Motrin) 800 mg Q8H PRN PO 10/17/17 21:45 10/18/17 00:14 (Percocet 5-325 Mg) 1 tab Q4H PRN PO 10/17/17 21:45 (Americaine 20% Top Spr) 1 spray Q4H PRN TOPICAL 10/17/17 21:45 10/18/17 00:14 (Tucks Pads) 1 applic QID PRN TOPICAL 10/17/17 21:45 10/18/17 00:14 (Cyndy-Colace) 2 tab Q12H PRN PO 10/17/17 21:45 (Ambien) 5 mg HS PRN PO 10/17/17 21:45 (Mag-Al Plus Susp Liq) 15 ml Q8H PRN PO 10/17/17 21:45 (Zofran Odt) 4 mg Q6H PRN PO 10/17/17 21:45 (Benadryl Inj) 50 mg UNSCH X1 PRN IM 10/17/17 23:30 10/18/17 09:00 10/18/17 00:14 Assessment/Plan Assessment and Plan 31 year old delivered vaginally at 38 weeks gestation PPD#1. 1. Care - AF, continue to monitor vital signs routinely - Encouraged OOB, as tolerated - Motrin or Percocet prn pain - Advised pelvic rest x 6 weeks - without issues currently - Contraception: Patient desiring BTL, instructed patient how to proceed to have this scheduled - Will f/u with OB provider within [address] Muro Discharge Planning Anticipate discharge home tomorrow pending stable clinical course Sudhakar Arevalo MD Oct 18, 2017 08:36
[2017-10-18] MEDS ORDERED: SODIUM CHLORIDE 0.9% FLUSH 10 ML FLUSH IV FLUSH SCH (09:00)
[2017-10-18 09:05] VITALS: BP 121/66; PULSE 79; RESP 18; TEMP 97.5
[2017-10-18] MEDS: ACETAMINOPHEN 325 MG TAB PO PRN ×2 (09:33→17:28)
[2017-10-18] MEDS: DOCUSATE SODIUM 50 MG/SENNA 8.6 MG TAB PO PRN (17:29)
[2017-10-18] MEDS: LACTATED RINGER'S 1000 ML INJ 1,000 ML IV SCH (18:28)
[2017-10-18] MEDS: oxyCODONE/ACETAMINOPHEN 5 MG/325 MG TAB PO PRN (21:26)
[2017-10-19] MEDS: LACTATED RINGER'S 1000 ML INJ 1,000 ML IV SCH (00:05)
[2017-10-19] MEDS: oxyCODONE/ACETAMINOPHEN 5 MG/325 MG TAB PO PRN ×4 (01:32→16:08)
[2017-10-19] MEDS: IBUPROFEN 800 MG TAB PO PRN ×3 (01:32→16:08)
--- NOTE | 2017-10-19 08:07 | HHI.OB ---
Subjective Post Day: 2 Remarks Patient seen and examined this morning. day #2. Patient reports bilateral lower back pain, cramp-like nature. Decreased lochia. No breast tenderness. She is feeding the baby via breast without reported issues. Appetite good. No nausea or vomiting. Ambulating well without issues. Denies calf pain, shortness of breath, dysuria, or cough. She otherwise has no other complaints or concerns this morning. Objective Vitals/I&O Vital Signs Date Time Temp Pulse Resp B/P (MAP) Pulse Ox O2 Delivery O2 Flow Rate FiO2 10/18/17 09:05 97.5 79 18 121/66 (84) Objective Remarks GENERAL: Well-nourished, well-developed patient. CARDIOVASCULAR: Regular rate and rhythm without murmurs, gallops, or rubs. RESPIRATORY: Breath sounds equal bilaterally. No accessory muscle use. ABDOMEN/GI: Abdomen soft, non-tender. Fundus: Firm, non-tender at umbilicus. GENITOURINARY: Light to moderate bleeding. EXTREMITIES: No cyanosis or edema, non-tender, without signs of DVT. Medications and IVs Current Medications Medications (Trade) Dose Ordered Sig/Marybeth Route Start Time Stop Time Status Last Admin Lactated Ringer's 1,000 ml @ 125 mls/hr Q8H IV 10/17/17 18:28 10/17/17 20:01 Lactated Ringer's 1,000 ml @ 3,000 mls/hr Q20M PRN IV 10/17/17 18:28 Sodium Chloride 1,000 ml @ 100 mls/hr Q10H PRN IV 10/17/17 18:48 (Xylocaine 1% Inj (50 ml)) 0.1 ml UNSCH X1 PRN I-DERMAL 10/17/17 18:30 10/20/17 18:29 (Bicitra Liq) 30 ml RECREATION THERAPY TEACHER PO 10/17/17 18:30 10/21/17 18:29 (fentaNYL INJ) 50 mcg Q1H PRN IV PUSH 10/17/17 18:30 (fentaNYL INJ) 100 mcg Q1H PRN IV PUSH 10/17/17 18:30 (Xylocaine 1% Inj (50 ml)) 10 ml UNSCH X1 PRN INFIL 10/17/17 18:30 10/19/17 18:29 (Muri-Lube Oil) 10 ml UNSCH PRN TOPICAL 10/17/17 18:30 Fentanyl/ Bupivacaine HCl 100 ml @ 0 mls/hr TITRATE EPIDURAL 10/17/17 20:45 (NS Flush) 2 ml BID IV FLUSH 10/18/17 09:00 (NS Flush) 2 ml UNSCH PRN IV FLUSH 10/17/17 21:45 (Tylenol) 650 mg Q4H PRN PO 10/17/17 21:45 10/18/17 17:28 (Motrin) 800 mg Q8H PRN PO 10/17/17 21:45 10/19/17 01:32 (Percocet 5-325 Mg) 1 tab Q4H PRN PO 10/17/17 21:45 10/19/17 07:12 (Americaine 20% Top Spr) 1 spray Q4H PRN TOPICAL 10/17/17 21:45 10/18/17 00:14 (Tucks Pads) 1 applic QID PRN TOPICAL 10/17/17 21:45 10/18/17 00:14 (Cyndy-Colace) 2 tab Q12H PRN PO 10/17/17 21:45 10/18/17 17:29 (Ambien) 5 mg HS PRN PO 10/17/17 21:45 (Mag-Al Plus Susp Liq) 15 ml Q8H PRN PO 10/17/17 21:45 (Zofran Odt) 4 mg Q6H PRN PO 10/17/17 21:45 Assessment/Plan Assessment and Plan 31 year old delivered vaginally at 38 weeks gestation PPD#2. 1. Care - AFVSS - Encouraged OOB, as tolerated - Motrin prn pain - Advised pelvic rest x 6 weeks - without issues - Contraception: Patient desiring BTL, instructed patient how to proceed to have this scheduled - Will f/u with OB provider within 6 weeks liz Long Discharge Planning Stable for discharge home today Sudhakar Arevalo MD Oct 19, 2017 08:07
[2017-10-19] MEDS ORDERED: PERI PO (08:09)
[2017-10-19] MEDS ORDERED: IBUP1TAB7 PO (08:09)
[2017-10-19 08:10] VITALS: BP 107/55; PULSE 77; RESP 16; TEMP 98.2
[2017-10-19] MEDS: DOCUSATE SODIUM 50 MG/SENNA 8.6 MG TAB PO PRN (08:10)
--- NOTE | 2017-10-19 08:11 | HHI.DCPOC ---
Discharge Care Plan Report Symptoms to Your Doctor -Temperature above 100.5 degrees -Redness, of incision or excessive or foul smelling drainage -Unusual pain or calf pain -Increased vaginal bleeding -Painful or difficulty urinating -Feelings of extreme sadness or anxiety after 2 weeks Goals to Promote Your Health * To maintain your health at the optimal level, follow up with your OB provider within 6 weeks after leaving the hospital. Directions to Meet Your Goals Take your medications as prescribed Follow your dietary instruction Follow activity as directed Ensure plenty of rest for recovery Drink fluids for hydration Keep your appointments as scheduled Take your immunizations and boosters as scheduled If your symptoms worsen call your PCP, if no PCP go to Urgent Care Center or Emergency Room Smoking is Dangerous to Your Health. Avoid second hand smoke Call the 24-hour crisis hotline for domestic abuse at Sudhakar Arevalo MD Oct 19, 2017 08:11
== END 2017-10-19 16:29 | disposition home or self-care (01) | DRG 775 ==
LOC: HOBED 17:46 → H2EB 18:27 → H1EA 22:58
PROVIDERS: ADMIT Obstetrics & Gynecology Maternal & Fetal Medicine; ATTEND Obstetrics & Gynecology Maternal & Fetal Medicine
PROC: 10E0XZZ Delivery of Products of Conception, External Approach (ICD-10-PCS; principal; 2017-10-17)
PROC: 00HU33Z Insertion of Infusion Device into Spinal Canal, Percutaneous Approach (ICD-10-PCS; 2017-10-17)
PROC: 3E0R3BZ Introduction of Anesthetic Agent into Spinal Canal, Percutaneous Approach (ICD-10-PCS; 2017-10-17)
PROC: 0T9B70Z Drainage of Bladder with Drainage Device, Via Natural or Artificial Opening (ICD-10-PCS; 2017-10-17)
DX: O99.89 Other specified diseases and conditions complicating pregnancy, childbirth and the puerperium (principal); R10.2 Pelvic and perineal pain; Z37.0 Single live birth; Z23 Encounter for immunization; Z3A.38 38 weeks gestation of pregnancy
CPT/HCPCS: 59025; 80307; 81001; 85025; 90715; 99285; J1200; J2590; J7120